=== PATIENT | female | born 1970 ===

== ENCOUNTER 2018-06-04 09:08 | Emergency (ER) | payer MEDICAID ==
[2018-06-04 09:08] VITALS: BMI 31.5
[2018-06-04 09:19] VITALS: TEMP 98.8
[2018-06-04] MEDS ORDERED: Aluminum Hydroxide/Magnesium Hydroxide Susp (30 mL) PO STA (10:25)
--- NOTE | 2018-06-04 10:25 | C.PDOC ---
History Of Present Illness 47 y/o female presents to the ER complaining of new onset of intermittent epigastric abdominal pain which has been present for the past 3 days. Patient states that the pain is localized. Patient reports that the pain is worse with eating. She notes that she did not take any medications for the pain. Denies having fever,chills, nausea, vomiting, diarrhea, urinary symptoms , history of GI disease, and past surgical history. Time Seen by Provider: 06/04/18 09:56 Chief Complaint (Nursing): Abdominal Pain History Per: Patient History/Exam Limitations: no limitations Onset/Duration Of Symptoms: Days Current Symptoms Are (Timing): Still Present Severity: Moderate Location Of Pain/Discomfort: Epigastric Associated Symptoms: denies: Fever, Chills, Nausea, Vomiting, Diarrhea Exacerbating Factors: Food Past Medical History Reviewed: Historical Data, Nursing Documentation, Vital Signs Vital Signs: Last Vital Signs Temp 98.8 F 06/04/18 09:16 Pulse 80 06/04/18 09:16 Resp 18 06/04/18 09:16 BP 127/84 06/04/18 09:16 Pulse Ox 98 06/04/18 09:16 - Medical History PMH: No Chronic Diseases Surgical History: No Surg Hx - [facility] Procedures MANUAL ASSIST DELIV NEC (07/12/12) REPAIR OB LACERATION NEC (07/12/12) Family History: States: No Known Family Hx - Social History Hx Alcohol Use: No Hx Substance Use: No - Immunization History Hx Tetanus Toxoid Vaccination: No Hx Influenza Vaccination: No Hx Pneumococcal Vaccination: No Review Of Systems Except As Marked, All Systems Reviewed And Found Negative. Constitutional: Negative for: Fever, Chills Gastrointestinal: Positive for: Abdominal Pain. Negative for: Nausea, Vomiting, Diarrhea Genitourinary: Negative for: Dysuria, Hematuria Physical Exam - Physical Exam Appears: Non-toxic, No Acute Distress Skin: Normal Color, Warm, Dry, Other (anicteric) Head: Atraumatic, Normacephalic Eye(s): bilateral: Normal Inspection Nose: Normal Oral Mucosa: Moist Cardiovascular: Rhythm Regular Respiratory: No Rales, No Rhonchi, No Wheezing, Other (NARD) Gastrointestinal/Abdominal: Soft, Tenderness (mild epigastric tenderness), No Guarding, No Rebound Neurological/Psych: Oriented x3, Normal Speech ED Course And Treatment - Laboratory Results Result Diagrams: 06/04/18 10:32 06/04/18 10:32 O2 Sat by Pulse Oximetry: 98 (RA) Pulse Ox Interpretation: Normal Progress - Re-Evaluation Re-evaluation Note: 06/04/18 12:08 SP RX FEELS BETTER. PENDING US 06/04/18 12:09 - Data Reviewed Data Reviewed: Lab, Diagnostic imaging, EKG, Old records Medical Decision Making Medical Decision Making: Plan: --Labs --UA --ECG --Pepcid IV --Protonix IV --Maalox PO --Lidocaine 2% Viscous Disposition Counseled Patient/Family Regarding: Studies Performed, Diagnosis, Need For Followup, Rx Given - Disposition Referrals: [facility] [Outside] [facility] [Outside] [facility] [Other] Disposition: HOME/ ROUTINE Disposition Time: 12:10 Condition: IMPROVED Prescriptions: Famotidine [Pepcid AC] 10 mg PO QN #30 tablet Lansoprazole [Prevacid] 15 mg PO DAILY #30 ecc Ondansetron ODT [Zofran ODT] 4 mg PO TID PRN #12 odt PRN Reason: Nausea/Vomiting Instructions: Acute Abdomen (Belly Pain), Adult (DC) Forms: mygola (Vietnamese) - Clinical Impression Clinical Impression: Abdominal pain, Dyspepsia - Scribe Statement The provider has reviewed the documentation as recorded by the Harjinder De La Cruz Provider Attestation: All medical record entries made by the Scribe were at my direction and personally dictated by me. I have reviewed the chart and agree that the record accurately reflects my personal performance of the history, physical exam, medical decision making, and the department course for this patient. I have also personally directed, reviewed, and agree with the discharge instructions and disposition.
[2018-06-04] MEDS ORDERED: Aluminum Hydroxide/Magnesium Hydroxide Susp (30 mL) ONE (10:37)
[2018-06-04 10:41] LABS: BASO # 0.1 K/uL (0.0-0.2); BASO % 0.9 % (0.0-2.0); EOS # 0.1 K/uL (0.0-0.7); EOS % 1.6 % (0.0-4.0); HEMOGLOBIN 13.6 g/dL (11.0-16.0); LYMPH # 2.8 K/uL (1.0-4.3); LYMPH % 37.7 % (20.0-40.0); MEAN CELL VOLUME 93.5 fL (81.0-99.0); MEAN CORPUSCULAR HEMOGLOBIN 32.3 pg (27.0-31.0); MEAN CORPUSCULAR HGB CONC 34.5 g/dL (33.0-37.0); MEAN PLATELET VOLUME 8.9 fL (7.2-11.7); MONO # 0.4 K/uL (0.0-0.8); MONO % 5.6 % (0.0-10.0); NEUT # 4.1 K/uL (1.8-7.0); NEUT % 54.2 % (50.0-75.0); NRBC % 0.1 % (0.0-2.0); RBC 4.21 Mil/uL (3.80-5.20); RED CELL DISTRIBUTION WIDTH 13.4 % (11.5-14.5); WHITE BLOOD COUNT 7.5 K/uL (4.8-10.8)
[2018-06-04 10:46] LABS: SQUAMOUS EPITHIAL 4 /hpf (0-5); URINE BILIRUBIN NEGATIVE (NEGATIVE); URINE BLOOD NEGATIVE (NEGATIVE); URINE CLARITY Clear (Clear); URINE COLOR Yellow (YELLOW); URINE GLUCOSE (UA) NORMAL (Normal); URINE LEUKOCYTE ESTERASE NEG Leu/uL (Negative); URINE PROTEIN NEGATIVE (NEGATIVE); URINE UROBILINOGEN NORMAL mg/dL (0.2-1.0)
[2018-06-04 10:58] LABS: ALB/GLOB RATIO 1.5 (1.0-2.1); ALBUMIN 4.6 g/dL (3.5-5.0); ALT/SGPT 29 U/L (9-52); AST/SGOT 38 U/L (14-36); BLOOD UREA NITROGEN 16 mg/dL (7-17); CALCIUM 9.4 mg/dl (8.6-10.4); GFR NON-AFRICAN AMERICAN > 60; LIPASE 110 U/L (23-300)
--- NOTE | 2018-06-04 12:06 | US ---
Right upper quadrant abdominal ultrasound HISTORY: Abdominal pain. Comparison: None available. Technique: Real-time sonography was performed through the right upper quadrant of the abdomen. Findings: Liver: 13.4 centimeters in length. Increased echogenicity of the hepatic parenchymal cortex suggestive for fatty infiltration versus hepatic parenchymal disease. Clinical correlation. Gallbladder: No calculi or sludge. Normal wall thickness of 1.6 millimeters. Negative sonographic Darby's sign. Common bile duct measures 3.4 millimeters, within normal limits. Limited visualization of the pancreas. Visualized aorta and IVC are preserved. Right kidney: 12.3 x 3.8 x 5.0 centimeters. No calculi or hydronephrosis. Impression: 1. Increased echogenicity of the hepatic parenchymal cortex suggestive for fatty infiltration versus hepatic parenchymal disease. Clinical correlation. 2. Limited visualization of the pancreas.
[2018-06-04 12:41] VITALS: BP 110/76; PULSE 71; RESP 20; O2SAT 97
== END 2018-06-04 12:41 | disposition home or self-care (01) ==
LOC: C.ER 09:08
DX: R10.13 Epigastric pain (principal)
CPT/HCPCS: 76705; 80053; 81001; 81025; 83690; 85025; 96374; 96375; 99285; C9113